=== PATIENT | female | born 1985 | race Caucasian/White ===

== ENCOUNTER 2018-02-23 23:38 | Inpatient (IN) | payer OTHER ==
[2018-02-24 00:14] VITALS: BMI 39.1
[2018-02-24 00:59] LABS: Amnisure Test RUPTURE DETECTED (No Rupture)
[2018-02-24 01:01] LABS: Amnisure Internal Control QC ACCEPTABLE (ACCEPTABLE)
[2018-02-24] MEDS ORDERED: Ondansetron HCl/PF 4 MG/2 ML Vial IVP PRN ×3 (01:22→19:06)
[2018-02-24] MEDS ORDERED: Butorphanol Tartrate 1 MG/ML VIAL SLOW IVP PRN (01:22)
[2018-02-24] MEDS ORDERED: Acetaminophen 500 MG TAB PO PRN (01:22)
[2018-02-24] MEDS ORDERED: Promethazine HCl 25 MG/ML VIAL IM PRN ×3 (01:22→19:06)
[2018-02-24] MEDS ORDERED: NS / Oxytocin 40 units/1000ml 1,000 ML IV SCH ×2 (01:30→19:06)
[2018-02-24] MEDS ORDERED: Misoprostol 200 MCG TAB RC PRN (01:30)
[2018-02-24] MEDS ORDERED: NS w/ Oxytocin 10 units 500 ML IV SCH ×2 (01:30)
[2018-02-24] MEDS ORDERED: Methylergonovine 0.2 MG/ML VIAL IM PRN ×2 (01:30→19:06)
[2018-02-24] MEDS ORDERED: Carboprost 250 MCG/ML AMP IM PRN (01:30)
[2018-02-24] MEDS ORDERED: Ibuprofen 800 MG TAB PO PRN (01:30)
[2018-02-24] MEDS ORDERED: Penicillin G Potassium 5 MILL.UNITS in Sodium Chloride 0.9% 100 ML IVPB SCH (01:30)
[2018-02-24] MEDS ORDERED: HYDROcodone/Acetaminophen 5/325 mg Tablet PO PRN ×4 (01:30→19:06)
[2018-02-24] MEDS ORDERED: Lidocaine 1% (PF) 30 ML VIAL SC PRN (01:30)
[2018-02-24] MEDS: Lactated Ringer's 1,000 ML IV SCH ×4 (01:36→13:29)
[2018-02-24] MEDS ORDERED: DISCONTINUE ALL PREVIOUS NARCOTICS FS SCH (01:45)
[2018-02-24 01:52] LABS: Hemoglobin 10.9 g/dL (12.0-16.0); Mean Corpuscular HGB CONC 35.2 g/dL (32.0-36.0); Mean Corpuscular Hemoglobin 29.1 pg (27.0-31.0); Mean Corpuscular Volume 82.5 fL (78.0-98.0); Mean Platelet Volume 8.2 fL (7.4-10.4); Platelet Count 167 thou/uL (130-400); RBC Distribution Width 17.7 % (11.5-14.5); Red Blood Cell (RBC) Count 3.76 mill/uL (4.20-5.40); White Blood Cell (WBC) Count 9.8 thou/uL (4.8-10.8)
[2018-02-24] MEDS: Bupivacaine 0.5% 20 ML, fentaNYL Citrate/PF 400 MCG in Sodium Chloride 0.9% 72 ML EPIDURAL SCH ×2 (02:19→10:34)
[2018-02-24 02:32] LABS: HBSAg Index 0.15 S/CO (0-0.99); HIV (1/2) Antibody/Antigen Non-Reactive (NonReactive); HIV 1/2 INDEX 0.12 S/CO (<1.00); Hep B Surf Ag Non-Reactive S/CO (NonReactive)
[2018-02-24] MEDS ORDERED: ePHEDrine/0.9% NaCl/PF SYRINGE 50 mg/10 ml SLOW IVP PRN (02:37)
[2018-02-24] MEDS ORDERED: Acetaminophen 325 MG TAB PO PRN (02:37)
[2018-02-24] MEDS ORDERED: Eucerin (Mineral Oil/Petrolatum,White) 30 gm Jar TOP PRN (02:37)
[2018-02-24] MEDS ORDERED: Naloxone HCl 0.4 mg/ml Vial IVP PRN ×2 (02:37)
[2018-02-24] MEDS ORDERED: Lactated Ringer's 500 ML IV PRN (02:37)
[2018-02-24] MEDS ORDERED: fentaNYL Citrate/PF 400 MCG, Bupivacaine 0.5% 20 ML in Sodium Chloride 0.9% 72 ML EPIDURAL SCH (02:45)
[2018-02-24] MEDS ORDERED: Communication Order-Pharmacy FS SCH (02:45)
[2018-02-24 04:17] LABS: Syphilis Antibody Nonreactive (Nonreactive); Syphilis Antibody Index 0.04 S/CO (<1.00 Non-Reactive)
[2018-02-24] MEDS: Penicillin G 2.5 MILL.units 50 ML IVPB SCH ×4 (06:03→20:38)
[2018-02-24] MEDS: diphenhydrAMINE 50 MG/ML VIAL IVP PRN ×2 (07:16→10:05)
[2018-02-24] MEDS ORDERED: Lidocaine 1% PF 5 ML VIAL ONE (08:31)
[2018-02-24] MEDS ORDERED: Bupivacaine PF 0.5% 30 ML VIAL ONE (11:11)
[2018-02-24] MEDS ORDERED: Butorphanol Tartrate 1 MG/ML VIAL ONE ×2 (12:51→15:09)
[2018-02-24] MEDS ORDERED: Butorphanol Tartrate 1 MG/ML VIAL SLOW IVP SCH (15:30)
[2018-02-24] MEDS ORDERED: Methylergonovine 0.2 MG/ML VIAL ONE (15:46)
[2018-02-24] MEDS ORDERED: diphenhydrAMINE 25 MG CAP PO PRN (19:06)
[2018-02-24] MEDS ORDERED: Bisacodyl 10 MG SUPP PR PRN (19:06)
[2018-02-24] MEDS ORDERED: Milk Of Magnesia 30 ML UDCUP PO PRN (19:06)
[2018-02-24] MEDS ORDERED: Zolpidem Tartrate 5 MG TAB PO PRN (19:06)
[2018-02-24] MEDS ORDERED: Lanolin Ointment 7 GM TUBE TOP PRN (19:06)
[2018-02-24] MEDS ORDERED: Preparation H Ointment 28 GM TUBE PR PRN (19:06)
[2018-02-24] MEDS ORDERED: Misoprostol 200 MCG TAB VAG PRN (19:06)
[2018-02-24] MEDS: Ibuprofen 800 MG TAB PO SCH (21:35)
[2018-02-24] MEDS: Docusate Calcium (SURFAK) 240 MG CAP PO SCH (21:35)
[2018-02-25 05:50] LABS: #Eosinphils 0.1 thou/uL (0.0-0.7); #Lymphocytes 1.5 thou/uL (1.20-3.40); #Monocytes 0.6 thou/uL (0.11-0.59); #Neutrophils 3.9 thou/uL (1.40-6.50); %Basophils 0.4 % (0.0-1.0); %Lymphocytes 24.7 % (21.0-51.0); %Neutrophils 63.9 % (42.0-75.0); Hemoglobin 9.4 g/dL (12.0-16.0); Mean Corpuscular HGB CONC 34.3 g/dL (32.0-36.0); Mean Corpuscular Hemoglobin 28.9 pg (27.0-31.0); Mean Corpuscular Volume 84.2 fL (78.0-98.0); Mean Platelet Volume 8.2 fL (7.4-10.4); Platelet Count 147 thou/uL (130-400); RBC Distribution Width 17.9 % (11.5-14.5); Red Blood Cell (RBC) Count 3.26 mill/uL (4.20-5.40); White Blood Cell (WBC) Count 6.1 thou/uL (4.8-10.8)
[2018-02-25] MEDS: Ibuprofen 800 MG TAB PO SCH ×3 (06:36→20:58)
[2018-02-25] MEDS ORDERED: Adacel (T-DAP) 0.5 ML VIAL IM ONE (09:00)
[2018-02-25] MEDS ORDERED: Measles/Mumps/Rubella 10 MCG/0.5 ML VIAL SC ONE (09:00)
[2018-02-25] MEDS ORDERED: Varicella virus, LIVE 0.5 ML VIAL SC ONE (09:00)
[2018-02-25] MEDS: Docusate Calcium (SURFAK) 240 MG CAP PO SCH ×2 (09:12→20:58)
[2018-02-25] MEDS: Ferrous Sulfate 325 MG TAB PO SCH ×2 (09:12→18:39)
[2018-02-25] MEDS ORDERED: Ondansetron ODT 4 MG TAB PO SCH (16:00)
[2018-02-25] MEDS ORDERED: Magnesium Oxide 250 MG TAB PO SCH (20:30)
[2018-02-26] MEDS: Ibuprofen 800 MG TAB PO SCH ×2 (05:38→14:21)
[2018-02-26] MEDS ORDERED: Magnesium Oxide 250 MG TAB PO SCH (09:00)
[2018-02-26] MEDS: Ferrous Sulfate 325 MG TAB PO SCH (09:55)
[2018-02-26] MEDS: Docusate Calcium (SURFAK) 240 MG CAP PO SCH (09:55)
--- NOTE | 2018-02-26 11:22 | OP ---
DATE OF SERVICE: 02/24/2018 PREOPERATIVE DIAGNOSES: Intrauterine at 36 weeks with spontaneous rupture of membranes and labor. POSTOPERATIVE DIAGNOSES: Intrauterine at 36 weeks with spontaneous rupture of membranes and labor. PROCEDURE: Spontaneous vaginal delivery over intact perineum. FINDINGS: A viable male weighing 3083 grams or 6 pounds 13 ounces with Apgars of 9 and 9. QUANTITATIVE BLOOD LOSS: 154 grams. COMPLICATIONS: None. DETAILS OF THE PROCEDURE: Ms. Blanco presented to [facility] Labor and Delivery tested positive for rupture of membranes, after complaining of several hours of leakage of fluid and contractions. ROM plus testing was positive. She was admitted for labor and dilated to approximately 6 cm at that point. She was allowed to progress on her own overnight and when progression was minimal by morning we started Pitocin. Pitocin augmentation was successful and the patient delivered a baby in vertex presentation over intact perineum. Once the head was out, shoulders delivered spontaneously along with rest of the baby's body. The mouth and nose were bulb suctioned. Cord clamped and cut. Baby handed to waiting attendants. Cord blood was obtained. Fundal massage was performed and the placenta delivered intact. Pitocin was then started. Inspection of the perineum, vaginal vault and cervix did not reveal any lacerations. The patient was then cleaned and allowed to recover in the labor and delivery room and baby went to nursery for further evaluation. Quantitative blood loss was measured at 154 grams. MTDD
[2018-02-26 13:27] VITALS: BP 102/62; TEMP 98.2
== END 2018-02-26 15:05 | disposition home or self-care (01) | DRG 775 ==
LOC: L&D/OP 23:38 → L&D 02-24 01:12 → 3SW 02-24 19:43
PROVIDERS: ADMIT Obstetrics & Gynecology; ATTEND Obstetrics & Gynecology
PROC: 10E0XZZ Delivery of Products of Conception, External Approach (ICD-10-PCS; principal; 2018-02-24)
DX: O76 Abnormality in fetal heart rate and rhythm complicating labor and delivery (principal); Z3A.37 37 weeks gestation of pregnancy; Z37.0 Single live birth; O99.52 Diseases of the respiratory system complicating childbirth; J45.909 Unspecified asthma, uncomplicated
CPT/HCPCS: 36415; 51702; 84112; 85027; 86780; 86850; 86870; 86900; 86901; 86905; 86922; 87340; 87389; 90715; 99285; J0595; J1200; J2001; J2210; J2310; J2405; J2540; J3010; J3490; J7050; Q0162; S0020

== ENCOUNTER 2018-08-26 16:13 | Emergency (ER) | payer OTHER, SELFPAY ==
[2018-08-26 17:24] LABS: #Eosinphils 0.1 thou/uL (0.0-0.7); #Lymphocytes 2.8 thou/uL (1.20-3.40); #Monocytes 0.4 thou/uL (0.11-0.59); #Neutrophils 4.3 thou/uL (1.40-6.50); %Basophils 0.3 % (0.0-1.0); %Eosinophils 1.1 % (0.0-10.0); %Lymphocytes 36.4 % (21.0-51.0); %Neutrophils 57.3 % (42.0-75.0); Hemoglobin 11.9 g/dL (12.0-16.0); Mean Corpuscular HGB CONC 32.8 g/dL (32.0-36.0); Mean Corpuscular Hemoglobin 27.9 pg (27.0-31.0); Mean Corpuscular Volume 85.1 fL (78.0-98.0); Platelet Count 259 thou/uL (130-400); Red Blood Cell (RBC) Count 4.25 mill/uL (4.20-5.40); White Blood Cell (WBC) Count 7.6 thou/uL (4.8-10.8)
[2018-08-26] MEDS ORDERED: Acetaminophen 500 MG TAB ONE (21:53)
--- NOTE | 2018-08-26 22:15 | ULT ---
PELVIC ULTRASOUND: History: Recent miscarriage with vaginal bleeding. FINDINGS: Real-time imaging of the pelvis was obtained transabdominally as well as with an endovaginal probe. This shows a uterus measuring 5.9 x 8.2 x 11.3 cm. Endometrium in the fundus region is not thickened and measures in the 1.2 mm range. It is slightly thickened in the lower uterine segment, increasing i n thickness to approximately 5 mm I do not see any retained products of conception. The right and left adnexa are normal in appearance. Doppler evaluation with spectral analysis: Normal flow is shown to both ovaries. IMPRESSION: 1. Minimally thickened lower uterine segment endometrium as compared to the fundal endometrium. No si gns of any retained products of conception. This could conceivably represent a small amount of residu al blood in the endometrium. POS: IMTIAZ
[2018-08-27 00:15] LABS: #Basophils 0.1 thou/uL (0.0-0.2); #Eosinphils 0.2 thou/uL (0.0-0.7); #Lymphocytes 3.6 thou/uL (1.20-3.40); #Monocytes 0.6 thou/uL (0.11-0.59); #Neutrophils 3.7 thou/uL (1.40-6.50); %Basophils 0.6 % (0.0-1.0); %Eosinophils 1.9 % (0.0-10.0); %Lymphocytes 44.5 % (21.0-51.0); %Monocytes 6.9 % (0.0-10.0); %Neutrophils 46.1 % (42.0-75.0); Hemoglobin 12.4 g/dL (12.0-16.0); Mean Corpuscular HGB CONC 32.8 g/dL (32.0-36.0); Mean Corpuscular Volume 85.4 fL (78.0-98.0); Mean Platelet Volume 8.2 fL (7.4-10.4); Platelet Count 262 thou/uL (130-400); Red Blood Cell (RBC) Count 4.41 mill/uL (4.20-5.40); White Blood Cell (WBC) Count 8.1 thou/uL (4.8-10.8)
[2018-08-27] MEDS ORDERED: Misoprostol 200 MCG TAB PO SCH (00:30)
[2018-08-27] MEDS ORDERED: Misoprostol 200 MCG TAB PR SCH (00:30)
== END 2018-08-27 01:53 | disposition home or self-care (01) ==
LOC: ERS 16:13
DX: O03.9 Complete or unspecified spontaneous abortion without complication (principal); J45.909 Unspecified asthma, uncomplicated; Z79.899 Other long term (current) drug therapy; Z79.51 Long term (current) use of inhaled steroids
CPT/HCPCS: 36415; 76856; 84702; 85025; 86900; 86901

== ENCOUNTER 2019-04-10 04:58 | Observation (INO) | payer OTHER ==
[2019-04-10] MEDS ORDERED: Albuterol Sulfate 2.5 mg/3 ml Neb ONE ×2 (05:15→07:53)
--- NOTE | 2019-04-10 06:26 | PDOC.FPRHP ---
- History of Present Illness Chief Complaint: Shortness of breath History of Present Illness: Sherri Rahman is a 33 year old at 27 wks who presented to the ED with a 5 day history of dyspnea, cough. Patient's symptoms started after having some congestion and with the recent change in weather (cold front). Denies fever. Occasional coughing up phlegm. Hospitalized in November 2018. Since 2016, has been hospitalized several times. Patient was seen the clinic twice since symptom onset and was given PO prednisone. Symptoms have only been progressively worsening. Notes some improvement with duoneb treatment previously in the week in the ED. - Allergies/Adverse Reactions Allergies Allergy/AdvReac Type Severity Reaction Status Date / Time Latex, Natural Rubber Allergy Mild Rash Verified 02/24/18 00:00 No Known Drug Allergies Allergy Verified 02/24/18 00:00 - Home Medications Medication Instructions Recorded Confirmed Type Albuterol Sulfate [Proair HFA] 2 puff INH Q4HR PRN 02/24/18 02/24/18 History Ferrous Sulfate [Iron] 325 mg PO DAILY 02/24/18 02/24/18 History Fluticasone/Salmeterol [Advair 1 inh IH BID 02/24/18 02/24/18 History Diskus 250/50] Magnesium Oxide [Magnesium] 500 mg PO DAILY 02/24/18 02/24/18 History Montelukast Sodium [Singulair] 10 mg PO HS 02/24/18 02/24/18 History Mv-Mn/Iron/FA/Herbal/Digestive 1 tablet PO DAILY 02/24/18 02/24/18 History [ One Tablet] Nasal Exhalation Resistanc.dev 1 each NS ASDIR 02/24/18 02/24/18 History [Provent] - History PMHx: Asthma, Anemia of PSHx: none FHx: noncontributory Social: denies smoking, tobacco, drug use - Review of Systems General: denies: fever/chills, weight/appetite/sleep changes Eyes: denies: eye pain, vision changes ENT: reports: nasal congestion, rhinorrhea Respiratory: reports: cough, congestion, shortness of breath Cardiovascular: denies: chest pain, palpitation Gastrointestinal: denies: nausea, vomiting Genitourinary: denies: incontinence, dysuria Skin: denies: rashes, lesions Musculoskeletal: denies: pain, tenderness Neurological: denies: numbness, weakness Psychological: denies: depression, other - Vital signs BP: 125/80, Pulse: 136, Resp: 40, Temp: 98.2 (Oral), Pain: 4, O2 sat: 98 on Room Air - Physical Exam Constitutional: awake, alert and oriented, well developed HEENT: normocephalic and atraumatic, EOMI, grossly normal vision, grossly normal hearing Neck: supple, FROM -Heart: Tachycardic, no murmur -Lungs: Poor air movement, few scant expiratory wheezes, tachypnea Abdomen: soft, non-tender Musculoskeletal: normal structure, normal tone Neurological: no focal deficit, CN II-XII intact Skin: no rash/lesions, capillary refill <2 seconds Heme/Lymphatic: no unusual bruising or bleeding, no purpura Psychiatric: normal mood and affect, good judgment and insight FMR H&P: A/P - Problem List (1) Asthma exacerbation Current Visit: Yes Status: Acute Code(s): J45.901 - UNSPECIFIED ASTHMA WITH (ACUTE) EXACERBATION (2) Third trimester Current Visit: Yes Status: Acute Code(s): Z34.93 - ENCNTR FOR SUPRVSN OF NORMAL PREG, UNSP, THIRD TRIMESTER - Plan Asthma Exacerbation - q2 albuterol nebs - 40 pred daily - continue advair daily - Mg - Continuous pulse ox - Supplemental O2 as needed, goal > 92% 3rd Trimester - anemia of , continue iron supplementation - routine care Dispo: Admit to clinical documentation improvement specialist/women's FMR H&P: Upper Level - Plan Date/Time: 04/10/19 0626 IKenny MD, have evaluated this patient and agree with findings/plan as outlined by human resource intern resident. Pertinent changes/additions are listed here. Sherri Rahman is a 33 year old F at 27 wks by 1T zaira who presented to the ED with a 5 day history of worsening asthma, cough, wheezes. Patient has been seen by PCP and ER and was started on additional inhaler, prednisone. At home, she is adherent to her regimen of advair, singulair, albuterol HFA and neb prn. Symptoms have continued to worsen despite these treatments. Patient has had several asthma exacerbations requiring hospitalization in the last 3 years. She states asthma is worsened by weather changes (normally cold fronts) and URIs. Last hospitalization was in November 2018. She denies any fever, chills , vision changes, chest pain, palpitations. In the ED, patient's HR was 136 and RR was 40 on admission, afebrile, normal O2 sats. In regards to her , states that has been uncomplicated thus far, with exception of anemia of . She denies any contractions, loss of fluid, vaginal discharge, dysuria. She had a small amount of spotting yesterday that has since resolved and she is still feeling baby move. No labs/imaging done in ED. Patient was given Albuterol neb and duoneb in ED. She continues to feel short of breath. On exam, she was tachypneic and tachycardic. Auscultation revealed decrease airway movement, prolonged expiratory phase. Patient is being admitted for acute asthma exacerbation. Will schedule q2hr duoneb redd. Start prednisone 40 mg po daily. Ordered NST. Continuous O2 monitoring. Will consider addition of IV mag sulfate. Anticipate hospital stay > 48 hrs. Please see human resource intern note above for full H&P, which I have reviewed and agree with. Addendum - Attending - Attending Attestation Date/Time: 04/10/19 5589 I personally evaluated the patient and discussed the management with Dr. Barbour/ Jason I agree with the History, Examination, Assessment and Plan documented above with any addition or exceptions noted below. Patient is a 33 yo at 26 wk with patient reported EDC of 07/17/19. Presents as admission from ER with a CC of worsening SOB. Patient was maintaining oxygen saturations during the ER course. She was seen in ER 2 days ago and started on PO prednisone. She was seen yesterday at [facility] and started on a second ICS. Patient reports compliance with regimen and describes proper inhaler use. She states she has had intermittent control of her asthma over the past 3 years since her initial diagnosis. She denies tobacco exposure. States she had recently acquired 2 cats approximately 6 months ago but has not noticed any change in her symptoms. Patient also states she is working at [employer] and note that the change in temperature from the locations she works triggers her sx. She also states weather changes trigger her sx. ABG unremarkable. On exam, poor air movement with prolonged expiratory phase. Patient states she is feeling better. Plan to start IV steroids, given IV mag, check procalcitonin, scheduled duonebs. Patient states duoneb and not albuterol helping. Will reassess frequently. Pulm consulted since patient on maximum maintenance medications. Will await recommendations. JEANMARIE for records from last hospital stay in the [facility] and from primary OB office to verify official EGA. BPP ordered. Q-shift NST.
[2019-04-10] MEDS ORDERED: Albuterol Sulfate 2.5 mg/0.5 ml Neb ONE (07:53)
[2019-04-10] MEDS ORDERED: Magnesium 2 GM/50 ML BAG (IN WATER) ONE (08:20)
[2019-04-10 08:26] LABS: Analyzer IN Cardio ER; Base Excess (BEa) -5.1 mEq/L (-2.0 to +3.0); CO2 Tension 27.9 mmHg (35.0-45.0); Calcium, Ionized 1.17 mmol/L (1.12-1.30); Hemoglobin (Hb) 11.9 g/dL (12.0-16.0); pH, Arterial 7.43 (7.35-7.45)
[2019-04-10 08:27] LABS: ALV-art Gradient 15.855 (0-20); Puncture Site RRA
[2019-04-10] MEDS ORDERED: methylPREDNISolone Sod Succ/PF 125 MG/2 ML VIAL ONE (08:45)
[2019-04-10] MEDS ORDERED: Acetaminophen 325 MG TAB PO PRN (08:59)
[2019-04-10] MEDS ORDERED: predniSONE 20 MG TAB PO SCH (09:15)
--- NOTE | 2019-04-10 09:35 | ULT ---
ULTRASOUND BIOPHYSICAL PROFILE: HISTORY: distress FINDINGS: A single live intrauterine gestation is seen. heart rate:136bpm RAI: 12.5 cm Placenta: Posterior without placenta previa Cervix: 4.1 cm in length OB biophysical profile: tone: 2 breathin movements: 2 Amniotic fluid: 2 IMPRESSION: The ultrasound biophysical profile score is 8 out of 8.
[2019-04-10] MEDS ORDERED: Albuterol Sulfate 1.25 MG/3 ML NEB NEB SCH ×2 (10:00→13:00)
--- NOTE | 2019-04-10 13:09 | CON ---
DATE OF CONSULTATION: HISTORY OF PRESENT ILLNESS: Sherri Rahman is a 33-year-old female 7 months who has had asthma for the last 3-4 years. Baseline medication includes Advair 500/50 twice a day, Singulair 10 at nighttime, magnesium 500 a day, ferrous sulfate, and albuterol as needed. She is admitted over the weekend with increased shortness of breath, cough, and wheezing, unresponsive to usual medication. We have been consulted regarding asthma. No fever or chills. No chest pain. This morning, she is somewhat better, but still wheezing and coughing and sinus drainage. No reflux. PAST MEDICAL HISTORY: Never smoked. No alcohol abuse. PAST SURGICAL HISTORY: None. SOCIAL HISTORY: She works at [employer]. REVIEW OF SYSTEMS: Unremarkable. PHYSICAL EXAMINATION: GENERAL: On examination, she appears to be in no acute distress. VITAL SIGNS: Saturations room air, respiratory rate 19, blood pressure 130/55. CHEST: Minimal wheezing. CARDIAC: Normal S1, S2. No gallops. ABDOMEN: No masses. LABORATORY DATA: A blood gas was ordered on room air. PO2 was 99, pCO2 . ASSESSMENT: Asthmatic bronchitis exacerbation. I am going to restart home medication, DuoNeb, Singulair. Agree with antibiotics. Magnesium. Home when improved. I would consider 2 weeks. Pulmonary will follow. Job ID: [id number]
[2019-04-10] MEDS ORDERED: Albuterol Sulfate 2.5 mg/3 ml Neb NEB PRN (15:01)
--- NOTE | 2019-04-10 15:01 | PDOC.EVN ---
Event Note - Event Note Event Note: Evaluated patient again. Reports she had just had a flare up of difficulty breathing and feeling like her airway was tight and received duoneb which improved symptoms. She intermittently has dry cough. Has very minimal nasal congestion. Lungs on exam: slightly improved air movement compared to this am, decreased expiratory breath sounds with faint wheeze. Received record from Dr. Tucker's office. Showed STEVE of 07/17, putting pt @ 26.0wks gestation today. Patient denies childhood asthma. Reports asthma symptoms began 3 years ago with hospitalization in 2016. Has had 4 hospitalizations in past 2 years, the last one being in the summer at the [facility]. Never intubated. Reports has needed NC for short time and typical stays are 2-3 days. She reports compliance with advair, singulair, oral magnesium, and prn albuterol. Has had cats for past 6 months. Started working at [employer] 1 month ago. Reports changes in temperature, smell of chemicals can be triggers for asthma but at times there is no identifiable trigger. Denies family history of adult asthma. Has never had PFTs or allergy testing done. Continue current management and monitor for gradual clinical improvement. ATTENDING ADDENDUM: I personally evaluated patient at 1600. Patient appears to be breathing better. NST underway. will evaluate when completed.
[2019-04-10] MEDS ORDERED: Fluticasone Propionate Nasal Spray 16 gm Bottle NASAL SCH (17:45)
[2019-04-10] MEDS: Mometasone/Formoterol 120 PUFF INHALER INH SCH (18:07)
[2019-04-10] MEDS ORDERED: Montelukast Sodium 10 mg Tablet PO SCH (21:00)
--- NOTE | 2019-04-11 07:00 | PDOC.FM ---
- Subjective Subjective: Ms. aRhman reports slight improvement in breathing. Notes overnight she did have flare of difficulty breathing and sensation of chest tightness like her airway was closing. During that time she was unable to speak in normal voice. Denies fever. Denies feeling of panic or anxiety with exacerbations. - Objective Vital Signs & Weight: Vital Signs (12 hours) Temp Pulse Resp BP Pulse Ox 04/11/19 05:03 109 H 18 96 04/11/19 04:21 98.0 F 109 H 20 107/59 L 96 04/11/19 00:16 98.2 F 106 H 16 117/64 96 04/11/19 00:11 107 H 16 97 I&O: 04/10/19 04/11/19 04/12/19 06:59 06:59 06:59 Intake Total 720 Balance 720 Phys Exam - Physical Examination Constitutional: NAD Respiratory: no wheezing (slightly decreased breath sounds) Cardiovascular: RRR, no significant murmur Gastrointestinal: soft Musculoskeletal: no edema Neurological: non-focal Psychiatric: normal affect Skin: normal turgor Dx/Plan (1) Asthma exacerbation Code(s): J45.901 - UNSPECIFIED ASTHMA WITH (ACUTE) EXACERBATION Status: Acute - Plan Plan: Asthma Exacerbation - continue duonebs, albuterol prn - s/p Mag, solumedrol. Will continue PO prednisone - not required supplemental O2 - pulmonology consulted - would bnefit from PFTs and additional outpatient workup including allergy testing as well as patient has interesting history. Could also consider vocal cord dysfunction etc in differential. sIUP @ 26 wks - anemia of , continue iron supplementation - FHT qshift -last documented 145. - BPP completed 01/23. Dispo: Plan for discharge home today with steroid taper per pulm recommendations. Follow up with [facility] within 1 week. Pulmonology follow up in 2 weeks. Addendum - Attending - Attending Attestation Date/Time: 04/11/19 6236 I personally evaluated the patient and discussed the management with Dr. Rudolph I agree with the History, Examination, Assessment and Plan documented above with any addition or exceptions noted below. cleared for d/c by pulm. D/C on 2 week steroid taper. Continue advair, singulair , albuterol INH, duoneb, and albuterol neb. F/U pulm 2 wk. F/U [facility] 1 wk for allergy referral.
[2019-04-11] MEDS ORDERED: predniSONE 20 MG TAB PO SCH (08:00)
[2019-04-11] MEDS: Mometasone/Formoterol 120 PUFF INHALER INH SCH (08:05)
[2019-04-11] MEDS ORDERED: Fluticasone Propionate Nasal Spray 16 gm Bottle NASAL SCH ×2 (09:00)
[2019-04-11] MEDS ORDERED: Magnesium Oxide 250 MG TAB PO SCH (09:00)
--- NOTE | 2019-04-11 09:31 | PRG ---
DATE OF SERVICE: 04/11/2019 SUBJECTIVE: This morning, she is awake, alert, responsive. No shortness of breath. No coughing or wheezing, though she does have postnasal drip, which aggravates her asthma. OBJECTIVE: VITAL SIGNS: Pulse 76, temperature 98, saturations are 90% on room air, and blood pressure 129/66. CHEST: No wheezing or crackles. CARDIAC: Normal S1 and S2. No gallops. ABDOMEN: No masses. ASSESSMENT: 1. Asthmatic bronchitis, stable. I had no wheezing today in fact I did not get much wheezing yesterday. 2. Rhinitis. 3. . PLAN: Pulmonary-vargas, she is ready to be discharged home. I suggest we can increase the Flonase to twice a day to help her drainage, which apparently is aggravating her asthma, though she is clearly stable right now. Disposition as per primary care physician. She needs to be on home inhaled steroids, Singulair, and neb treatments. Taper steroids over 2 weeks. Job ID: [id number]
[2019-04-11] MEDS ORDERED: Prenatal Vitamin 1 TAB PO SCH (09:45)
[2019-04-11 11:27] VITALS: TEMP 98.2
[2019-04-11 13:31] VITALS: BP 129/66
[2019-04-11] MEDS ORDERED: FLU VACC QS2019-20(6MOS UP)/PF 60 MCG/0.5 ML SYRINGE IM ONE (15:00)
[2019-04-12] MEDS ORDERED: Ferrous Sulfate 325 MG TAB PO SCH (09:00)
[2019-04-12] MEDS ORDERED: HERBAL PO SCH (09:00)
[2019-04-12] MEDS ORDERED: Non-Formulary Item 1 EACH (Ferrous Sulfate [Iron] 325 MG) PO SCH (09:00)
[2019-04-12] MEDS ORDERED: DIGESTIVE PO SCH (09:00)
[2019-04-12] MEDS ORDERED: [UNRECOGNIZED DRUG - OTHER] PO SCH (09:00)
[2019-04-12] MEDS ORDERED: IRON PO SCH (09:00)
[2019-04-12] MEDS ORDERED: MV MN PO SCH (09:00)
[2019-04-12] MEDS ORDERED: Prenatal Vitamin 1 TAB PO SCH (09:00)
--- NOTE | 2019-04-14 13:56 | DIS ---
DATE OF ADMISSION: 04/10/2019 DATE OF DISCHARGE: 04/11/2019 RESIDENT: Marian Rudolph DO ADMITTING/ATTENDING PHYSICIAN: Crispin Contreras MD DISCHARGE ATTENDING: Crispin Contreras MD CONSULTS: Pulmonology, Dr. Garcia. PROCEDURES: On 04/10/2019, biophysical profile ultrasound was normal, 01/23. PRIMARY DIAGNOSIS: Asthma exacerbation. SECONDARY DIAGNOSIS: Intrauterine at 26 weeks. DISCHARGE MEDICATIONS: 1. vitamin 1 tablet p.o. daily. 2. Ferrous sulfate 325 mg p.o. daily. 3. Magnesium oxide 500 mg p.o. daily. 4. Singulair 10 mg p.o. at bedtime. 5. Advair Diskus 250/50 two puffs inhaled b.i.d. 6. Albuterol sulfate two puffs inhaled q.4 hours p.r.n. 7. Fluticasone propionate nasal spray, two sprays, nasal b.i.d. 8. Prednisone 14-day taper. 9. DuoNeb 3 mL nebulizer q.6 hours p.r.n. HISTORY OF PRESENT ILLNESS: A 33-year-old, G8, P4-2-1-5 at 26 weeks, presented to the emergency department with a 5-day history of worsening dyspnea and cough. She had been started on oral prednisone in addition to Advair and albuterol in the outpatient setting and has failed this treatment. On admission, the patient was tachycardic. She did not require supplemental oxygen. She was tachycardic. The patient's respiratory status continued to improve with scheduled breathing treatments. Pulmonology was consulted and recommended continuation of treatment. She was additionally given magnesium and continued on steroids throughout hospitalization. The patient was discharged with medications as listed above. Plan for followup with [facility] in 1 week as well as follow up with Pulmonology in 2 weeks. She will continue on a steroid taper until that time. The patient would likely benefit from official pulmonary function tests as well as additional outpatient workup including allergy testing as this has never been done before. Considering the patient's description of symptoms, could also consider vocal cord dysfunction or other etiologies in the differential as wheezing was not heard on exam during hospitalization. DISPOSITION: Stable. DISCHARGE INSTRUCTIONS: Location: Home. Diet: Regular. Activity: As tolerated. Followup: Followup with primary care physician at [facility] in 1 week. Followup with Pulmonology in 2 weeks. Job ID: [id number] MTDD
== END 2019-04-11 15:32 | disposition home health service (06) ==
LOC: ERS 04:58 → 3SE 09:08
PROVIDERS: ADMIT Family Medicine; ATTEND Family Medicine
DX: O99.512 Diseases of the respiratory system complicating pregnancy, second trimester (principal); J45.901 Unspecified asthma with (acute) exacerbation; J31.0 Chronic rhinitis; O99.012 Anemia complicating pregnancy, second trimester; D64.9 Anemia, unspecified; Z3A.27 27 weeks gestation of pregnancy; Z79.899 Other long term (current) drug therapy; Z91.040 Latex allergy status; Z79.52 Long term (current) use of systemic steroids
CPT/HCPCS: 36415; 59025; 76819; 82103; 82805; 90471; 90686; 94640; 96365; 96375; G0008; G0378; J2930; J3475; J7512; J7611; J7620

== ENCOUNTER 2019-04-15 07:04 | Observation (INO) | payer OTHER ==
[2019-04-15 07:35] LABS: #Eosinphils 0.1 thou/uL (0.0-0.7); #Lymphocytes 1.5 thou/uL (1.20-3.40); #Monocytes 0.5 thou/uL (0.11-0.59); #Neutrophils 7.2 thou/uL (1.40-6.50); %Eosinophils 0.7 % (0.0-10.0); %Lymphocytes 15.9 % (21.0-51.0); %Monocytes 5.7 % (0.0-10.0); %Neutrophils 77.7 % (42.0-75.0); Hemoglobin 11.2 g/dL (12.0-16.0); Mean Corpuscular HGB CONC 34.7 g/dL (32.0-36.0); Mean Corpuscular Hemoglobin 31.1 pg (27.0-31.0); Mean Corpuscular Volume 89.7 fL (78.0-98.0); Mean Platelet Volume 7.6 fL (7.4-10.4); Platelet Count 226 thou/uL (130-400); Red Blood Cell (RBC) Count 3.59 mill/uL (4.20-5.40); White Blood Cell (WBC) Count 9.3 thou/uL (4.8-10.8)
--- NOTE | 2019-04-15 07:57 | CT ---
CTA CHEST WITH CONTRAST, AND 3-D VOLUME RENDERING CLINICAL INDICATION: Short of breath; Elevated D-dimer Comparison exam: None FINDINGS: Pulmonary embolus:No significant filling defect is identified within the pulmonary arteries. Thoracic aorta is nonaneurysmal. Pulmonary parenchymal consolidation:None Pleural effusion: None Pneumothorax: None Osseous structures: No acute process. IMPRESSION: No acute pulmonary embolus.
[2019-04-15 08:01] LABS: ALT (SGPT) 15 U/L (8-55); AST (SGOT) 9 U/L (5-34); Albumin 3.7 g/dL (3.5-5.0); Alkaline Phosphatase 95 U/L (40-110); Anion Gap 14 mmol/L (10-20); BUN (Urea Nitrogen) 14 mg/dL (7.0-18.7); Bilirubin, Total 0.2 mg/dL (0.2-1.2); CK (CPK) 45 U/L (29-168); Calc. Creatinine Clearance 0 mL/min (70-130); Calcium 8.8 mg/dL (7.8-10.44); Carbon Dioxide 21 mmol/L (22-29); Chloride 107 mmol/L (98-107); Estimated GFR-MDRD Greater than 90; Globulin 2.6 g/dL (2.4-3.5); Glucose 94 mg/dL (70-105); Potassium 4.1 mmol/L (3.5-5.1); Protein, Total 6.3 g/dL (6.0-8.3); Sodium 138 mmol/L (136-145)
--- NOTE | 2019-04-15 08:05 | RAD ---
CHEST 1 VIEW PORTABLE: Date: 04/15/19 HISTORY: Dyspnea, wheezing, asthma. FINDINGS: Heart size is normal. The lungs are clear. No pneumonia, edema, pleural effusion, or other acute proc ess. IMPRESSION: No acute intrathoracic disease. POS: TPC
[2019-04-15] MEDS ORDERED: Ondansetron ODT 4 MG TAB PO PRN (11:00)
[2019-04-15] MEDS ORDERED: Acetaminophen 325 MG TAB PO PRN (11:00)
[2019-04-15] MEDS ORDERED: Albuterol Sulfate 2.5 mg/3 ml Neb NEB PRN (11:05)
--- NOTE | 2019-04-15 11:08 | PDOC.FPRHP ---
- History of Present Illness Chief Complaint: difficulty breathing History of Present Illness: 33 yo @ 26.5 wks presents to ED today for difficulty breathing. Recent hospitalization and discharged 04/11 in which she presented similarly. Pulmonology was consulted. Her tachypnea improved with medical management. She reports compliance with discharge medication regimen. Notes she returned to work yesterday, "felt bad" until she was able to come home. Then she felt bad again this morning prior to go to work. 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 Today at work she felt clammy, hot and like she would pass out then difficulty breathing. She then came to ED. Denies anxiety. Reports normal PO intake, urine output. Says she stopped using duonebs last night as they made her mouth numb but received one in ED and said it helped resp symptoms. + movement. ED Course: duoneb CTA neg CXR neg - Allergies/Adverse Reactions Allergies Allergy/AdvReac Type Severity Reaction Status Date / Time Latex, Natural Rubber Allergy Mild Rash Verified 04/15/19 11:19 - Home Medications Medication Instructions Recorded Confirmed Type Albuterol Sulfate [Proair HFA] 2 puff INH Q4HR PRN 02/24/18 04/10/19 History Ferrous Sulfate [Iron] 325 mg PO DAILY 02/24/18 04/10/19 History Magnesium Oxide [Magnesium] 500 mg PO DAILY 02/24/18 04/10/19 History Montelukast Sodium [Singulair] 10 mg PO HS 02/24/18 04/10/19 History Mv-Mn/Iron/FA/Herbal/Digestive 1 tablet PO DAILY 02/24/18 04/10/19 History [ One Tablet] Nasal Exhalation Resistanc.dev 1 each NS ASDIR 02/24/18 04/10/19 History [Provent] Fluticasone Propionate [Flonase 2 spray NASAL BID #1 bot 04/11/19 Rx Nasal [place]] Fluticasone/Salmeterol [Advair 2 inh IH BID #4 blst.w.dev 04/11/19 Rx Diskus 500/50] Ipratropium/Albuterol Sulfate 3 ml NEB [id number] PRN #50 neb 04/11/19 Rx [DuoNeb] predniSONE [Prednisone] 10 mg PO ASDIR 14 Days #31 tablet 04/11/19 Rx - History PMHx: asthma, anemia of PSHx: none FHx: none Social: denies tobacco, alcohol, drug use - Review of Systems General: denies: fever/chills, weight/appetite/sleep changes Eyes: denies: vision changes ENT: denies: rhinorrhea Respiratory: reports: cough, shortness of breath Cardiovascular: denies: chest pain, palpitation, edema Gastrointestinal: denies: nausea, vomiting, diarrhea Genitourinary: denies: dysuria, polyuria Skin: denies: rashes, lesions Musculoskeletal: denies: pain Neurological: denies: syncope, seizure Psychological: denies: anxiety, depression - Vital signs BP: 109/65 HR: 95 RR: 18 Tmax: 97.8 Pox: 97% on RA Wt: 105 kg - Physical Exam Constitutional: awake, alert and oriented, well developed HEENT: normocephalic and atraumatic, grossly normal vision, grossly normal hearing, MMM, oropharynx clear Neck: supple, trachea midline, no LAD, no thyromegaly Heart: RRR, normal S1/S2, no murmurs/rubs/gallops, no edema Lungs: CTAB, no respiratory distress, no wheezing Abdomen: soft, non-tender, bowel sounds present Musculoskeletal: normal structure, normal tone Neurological: no focal deficit Skin: good turgor Heme/Lymphatic: no unusual bruising or bleeding Psychiatric: normal mood and affect FMR H&P: Results - Labs Result Diagrams: 04/15/19 07:21 04/15/19 07:21 Lab results: WBC 9.3 thou/uL (4.8-10.8) 04/15/19 07:21 Hgb 11.2 g/dL (12.0-16.0) L 04/15/19 07:21 Hct 32.2 % (36.0-47.0) L 04/15/19 07:21 MCV 89.7 fL (78.0-98.0) 04/15/19 07:21 Plt Count 226 thou/uL (130-400) 04/15/19 07:21 Neutrophils % 77.7 % (42.0-75.0) H 04/15/19 07:21 Sodium 138 mmol/L (136-145) 04/15/19 07:21 Potassium 4.1 mmol/L (3.5-5.1) 04/15/19 07:21 Chloride 107 mmol/L (98-107) 04/15/19 07:21 Carbon Dioxide 21 mmol/L (22-29) L 04/15/19 07:21 BUN 14 mg/dL (7.0-18.7) 04/15/19 07:21 Creatinine 0.67 mg/dL (0.6-1.1) 04/15/19 07:21 Glucose 94 mg/dL (70-105) 04/15/19 07:21 Calcium 8.8 mg/dL (7.8-10.44) 04/15/19 07:21 Total Bilirubin 0.2 mg/dL (0.2-1.2) 04/15/19 07:21 AST 9 U/L (5-34) 04/15/19 07:21 ALT 15 U/L (8-55) 04/15/19 07:21 Alkaline Phosphatase 95 U/L (40-110) 04/15/19 07:21 Creatine Kinase 45 U/L (29-168) 04/15/19 07:21 B-Natriuretic Peptide Less than 10.0 pg/mL (0-100) 04/15/19 07:21 Serum Total Protein 6.3 g/dL (6.0-8.3) 04/15/19 07:21 Albumin 3.7 g/dL (3.5-5.0) 04/15/19 07:21 FMR H&P: A/P - Problem List (1) Bronchitis Current Visit: Yes Status: Acute Code(s): J40 - BRONCHITIS, NOT SPECIFIED ACUTE OR CHRONIC (2) Tachypnea Current Visit: Yes Status: Acute Code(s): R06.82 - TACHYPNEA, NOT ELSEWHERE CLASSIFIED (3) Anemia affecting Current Visit: Yes Status: Chronic Code(s): O99.019 - ANEMIA COMPLICATING , UNSPECIFIED TRIMESTER - Plan 33 yo F admitted for observation for tachypnea. Viral bronchitis - CTA neg for PE, troponin neg, do not suspect ACS - Wheezing not heard, not likely asthma exacerbation - will continue medications discharged on including advair, duoneb and albuterol prn, PO steroid taper, flonase - "chest tightness" will trial pepcid in consideration for reflux. Pt had reflux with prior but wonders if she is starting to have it again - no hypoxia, tachypnea resolved. VSS. - Patient needs further outpatient eval including PFTs and allergy testing. Plan was for pulm follow up in 2 weeks. sIUP @ 26 wks - FHT q shift Anemia of - continue iron supplementation and PNV Ppx: SCDs Diet: Regular PCP: JT Dispo: admit for observation of respiratory status, could posisbly discharge later today vs tomorrow. There is no management being provided here at this time that cannot be done at home. Vital signs stable. Pending ABG. Addendum - Attending - Attending Attestation Date/Time: 04/15/19 2271 I personally evaluated the patient and discussed the management with Dr. Edwards and Aleksandar. I agree with the History, Examination, Assessment and Plan documented above with any addition or exceptions noted below. Her history is not entirely consistent with asthma. I think allergic broncihitis, viral bronchitis, laryngospasm, and somatization are all in the differential diagnosis. While she is breathing quickly during my exam she speaks comfortably and is not dyspneic. Her effort is poor for expiration phase of exam. Will obtain ABG for better objective data.
[2019-04-15] MEDS ORDERED: Famotidine 20 MG TAB PO SCH ×2 (11:15→21:00)
[2019-04-15] MEDS ORDERED: predniSONE 20 MG TAB PO SCH ×2 (11:15→12:30)
[2019-04-15 11:23] LABS: Troponin I Less than 0.010 ng/mL (< 0.028)
[2019-04-15 13:53] LABS: Troponin I Less than 0.010 ng/mL (< 0.028)
[2019-04-15 13:54] LABS: Actual Bicarbonate (HCO3a) 18.5 mEq/L (22-28); Base Excess (BEa) -4.4 mEq/L (-2.0 to +3.0); CO2 Tension 27.6 mmHg (35.0-45.0); Calcium, Ionized 1.12 mmol/L (1.12-1.30); Carboxyhemoglobin (COHb) 0.4 gm% (0.0-3.0); Hemoglobin (Hb) 11.4 g/dL (12.0-16.0); O2 Tension (PaO2) 77.8 mmHg (80.0-100.0); Potassium - ABG Lab 2.93 mmol/L (3.70-5.30); pH, Arterial 7.45 (7.35-7.45)
[2019-04-15 13:57] LABS: Puncture Site L.R.
--- NOTE | 2019-04-15 16:24 | PDOC.EVN ---
Event Note - Event Note Event Note: The patient was evaluated in the afternoon. She was saturating well on RA and her lungs sounded clear; patient was mildly tachypnic while resting in bed, with a rr in the lower 20s. Patient was agreeable to going home and following up with her pcp for pulmonology and deportation examiner referrals, as well as being discharged on a steroid taper and with medication to help with possible GERD. Patient was stable upon discharge.
[2019-04-15 17:20] VITALS: BP 114/55
[2019-04-15 17:56] VITALS: TEMP 98
[2019-04-15] MEDS ORDERED: Mometasone/Formoterol 120 PUFF INHALER INH SCH (18:30)
[2019-04-15] MEDS ORDERED: Fluticasone Propionate Nasal Spray 16 gm Bottle NASAL SCH (21:00)
[2019-04-15] MEDS ORDERED: Montelukast Sodium 10 mg Tablet PO SCH (21:00)
[2019-04-16] MEDS ORDERED: predniSONE 20 MG TAB PO SCH ×2 (08:00)
[2019-04-16] MEDS ORDERED: Prenatal Vitamin 1 TAB PO SCH (09:00)
[2019-04-16] MEDS ORDERED: Ferrous Sulfate 325 MG TAB PO SCH (09:00)
[2019-04-16] MEDS ORDERED: Magnesium Oxide 250 MG TAB PO SCH (09:00)
== END 2019-04-15 17:58 | disposition home health service (06) ==
LOC: ERS 07:04 → 3SE 09:10
PROVIDERS: ADMIT Family Medicine; ATTEND Family Medicine
DX: O99.512 Diseases of the respiratory system complicating pregnancy, second trimester (principal); J20.8 Acute bronchitis due to other specified organisms; J45.909 Unspecified asthma, uncomplicated; O99.012 Anemia complicating pregnancy, second trimester; D64.9 Anemia, unspecified; Z3A.26 26 weeks gestation of pregnancy; Z79.899 Other long term (current) drug therapy; Z91.040 Latex allergy status
CPT/HCPCS: 36415; 71045; 71275; 80053; 82550; 82805; 83880; 84484; 85025; 85379; 87804; 93005; 94640; G0378; J7512

== ENCOUNTER 2019-06-02 21:16 | Day surgery (SDC) | payer OTHER ==
[2019-06-02 21:38] VITALS: BP 122/76; TEMP 97.9; BMI 44.2
[2019-06-02] MEDS ORDERED: hydrALAZINE 20 MG/ML VIAL SLOW IVP PRN (21:44)
--- NOTE | 2019-06-02 22:31 | HP ---
TIME OF INITIAL EVALUATION: Roughly 2050 hours. LOCATION: Triage bed B. HISTORY OF PRESENT ILLNESS: In brief, this patient is here from [place] for labor eval. She is a 33-year-old white female, G8, P5, SAB2, with her last being delivered by vaginal at 36 weeks, who is now at 34 weeks' gestation. Her EDC is July 17, 2019. She states that she presented at [place] for occasional contractions and pelvic pressure, but denied leakage of fluid or vaginal bleeding or recent intercourse. She was fingertip in her cervical exam as per the ER physician in [place] (direct communication with him before her transport). She also reports some constipation, but again no leakage of fluid, but she does have some spotting. REVIEW OF SYSTEMS: Otherwise negative unless specified in the HPI. PAST OB HISTORY: Significant for being a 8, para 5, with no C-sections. Her last delivery was at 36 weeks. PAST MEDICAL HISTORY: Significant for asthma. MEDICATIONS: None. PAST SURGICAL HISTORY: Noncontributory. MEDICATIONS: Include vitamins. SOCIAL HISTORY: Negative for alcohol, tobacco, or drug use. PHYSICAL EXAMINATION: VITAL SIGNS: Her vital signs were reviewed with a blood pressure of 122/76, pulse was in the 90s. She was afebrile and respirations were 18 and unlabored. GENERAL: She was in no acute distress. ABDOMEN: Soft, nontender, and baby was cephalic by Venu palpation. : Perineal inspection revealed absence of gross bleeding or leakage of fluid. Valsalva and cough did not reveal leakage of fluid through the vagina. I performed a cervical examination after informing the patient of the need for that procedure. Cervix was closed (external os was fingertip) and it was thick and high. On monitor, heart tones were 130s to 140s with moderate variability and accelerations, meeting the definition for a reactive nonstress test. There were no contractions on tocodynamometer. ASSESSMENT: This is a 33 to 34-week multigravida with likely [place] contractions. No evidence of true labor. PLAN: 1. Observe in Labor and Delivery for about an hour. 2. Nonstress test was reviewed with the patient and reassurance given. 3. No active indication for acute intervention. 4. Okay to follow up with Dr. Tucker, who is her primary provider. Job ID: [id number]
== END 2019-06-02 22:22 | disposition home or self-care (01) ==
LOC: L&D/OP 21:16
PROVIDERS: ATTEND Obstetrics & Gynecology
DX: O47.03 False labor before 37 completed weeks of gestation, third trimester (principal); O99.613 Diseases of the digestive system complicating pregnancy, third trimester; K59.00 Constipation, unspecified; O26.853 Spotting complicating pregnancy, third trimester; Z3A.34 34 weeks gestation of pregnancy; Z91.040 Latex allergy status
CPT/HCPCS: 99283

== ENCOUNTER 2019-07-04 18:07 | Inpatient (IN) | payer OTHER ==
[2019-07-04 18:38] VITALS: BMI 41.0
[2019-07-04] MEDS ORDERED: hydrALAZINE 20 MG/ML VIAL SLOW IVP PRN (20:48)
--- NOTE | 2019-07-04 20:53 | PDOC.FPROB ---
FMR OB H&P: HPI - History of Present Illness Chief Complaint: Contractions Indentification: 33 yo @ 38.1 History of Present Illness: 33 yo @ 38.1 by LMP presents for painful contraction since 3pm today. Reports pos fm, no dc, lof, vag bleeding. Ab pos for Marzena-FYB, Anti-S abs. GBS pos + GBS bacteriuria this . Primary Care Physician: Caitlin FMR OB H&P: Current - Care : 8 Para: 4125 Gestational age: 38.1 Due date: 07/17/2019 Course/Complications: Anti FYB Anti S Pos. - OB Labs Blood type: O RH: positive Antibody Screen: positive HIV: negative RPR: negative HepBsAg: negative Rubella: immune Quad screen: unknown Urine drug screen: not done Gonorrhea: negative Chlamydia: negative 1 hour gtt: 117 GBS: positive FMR OB H&P: History - Past Medical History PMH: Asthma - OB History OB History: 1 delivery Ab pos this - Surgical History Sx History: Denies - Social History Social History: Denies etoh, tobacco and drugs FMR OB H&P: Medications - Current Home Medications: Medication Instructions Recorded Confirmed Type Ferrous Sulfate [Iron] 325 mg PO DAILY 02/24/18 07/04/19 History Magnesium Oxide [Magnesium] 500 mg PO DAILY 02/24/18 07/04/19 History Montelukast Sodium [Singulair] 10 mg PO HS 02/24/18 07/04/19 History Mv-Mn/Iron/FA/Herbal/Digestive 1 tablet PO DAILY 02/24/18 07/04/19 History [ One Tablet] Nasal Exhalation Resistanc.dev 1 each NS ASDIR 02/24/18 07/04/19 History [Provent] Fluticasone Propionate [Flonase 2 spray NASAL BID #1 bot 04/11/19 07/04/19 Rx Nasal [place]] Fluticasone/Salmeterol [Advair 2 inh IH BID #4 blst.w.dev 04/11/19 07/04/19 Rx Diskus 500/50] Ipratropium/Albuterol Sulfate 3 ml NEB [id number] PRN #50 neb 04/11/19 07/04/19 Rx [DuoNeb] Famotidine [Pepcid] 20 mg PO BID #60 tab 04/15/19 07/04/19 Rx Allergies/Adverse Reactions: Allergies Allergy/AdvReac Type Severity Reaction Status Date / Time Latex, Natural Rubber Allergy Mild Rash Verified 06/02/19 21:40 FMR OB H&P: ROS - Review of Systems General: denies: fever/chills Eyes: denies: vision changes Respiratory: denies: shortness of breath Gastrointestinal: reports: cramping. denies: abdominal pain, nausea, vomiting Genitourinary (Female): reports: contractions. denies: vaginal discharge, vaginal pain, vaginal bleeding, vaginal pressure Neurologic: denies: weakness, loss of counsciousness FMR OB H&P: Vital Signs - Heart Tones Baseline: 150 Variability: moderate Acceleration: present Deceleration: absent Category: category 1 [place] contractions every: Variable FMR OB H&P: Physical Exam - Physical Exam General: NAD, awake, alert and oriented HEENT: normocephalic and atraumatic, PERRLA, EOMI, conjunctiva clear Neck: trachea midline Heart: RRR, normal S1/S2 General: CTAB, no respiratory distress, good air movement, no rales/rhonchi, no wheezing Abdomen: soft, gravid, non-tender Neurological: no focal deficit Skin: no jaundice - Pelvic Exam Vulva: normal hair distribution SVE: 10/10/-3 Membranes: Intact Estimated Weight: 7 lbs FMR OB H&P: A/P - Problem List (1) Third trimester Current Visit: No Status: Acute Code(s): Z34.93 - ENCNTR FOR SUPRVSN OF NORMAL PREG, UNSP, THIRD TRIMESTER (2) Grand multiparity Current Visit: Yes Status: Acute Code(s): Z64.1 - PROBLEMS RELATED TO MULTIPARITY Disposition: Stable, will obs for next 2 hours and continue efm. Recheck cervix in 2 hours from last check. Discussion: Date/Time: 07/04/192048 This H&P was discussed with Dr. Faria who agrees with the above documentation and plan. 1) Term IUP, contractions - obs for 2 hours and recheck cervix, if pt makes significant change will admit - clinical course pending next cervical check Addendum - Attending - Attending Attestation Date/Time: 07/05/19 0728 I personally evaluated the patient and discussed the management with Dr. Lewis. I agree with the History, Examination, Assessment and Plan documented above.
[2019-07-04] MEDS ORDERED: FLU VACC QS2019-20(6MOS UP)/PF 60 MCG/0.5 ML SYRINGE IM ONE (21:00)
[2019-07-04] MEDS ORDERED: Lidocaine 1% (PF) 30 ML VIAL SC PRN (22:34)
[2019-07-04] MEDS ORDERED: Ondansetron PF 4 MG/2 ML Vial IVP PRN (22:34)
[2019-07-04] MEDS ORDERED: Ibuprofen 800 MG TAB PO PRN (22:34)
[2019-07-04] MEDS ORDERED: NS / Oxytocin 40 units/1000ml 1,000 ML IV PRN (22:34)
[2019-07-04] MEDS ORDERED: Promethazine HCl 25 MG/ML VIAL IM PRN (22:34)
[2019-07-04] MEDS ORDERED: Butorphanol Tartrate 1 MG/ML VIAL SLOW IVP PRN (22:34)
[2019-07-04] MEDS ORDERED: Sodium Chloride 0.9% 100 ML ONE (22:40)
[2019-07-04] MEDS ORDERED: Penicillin G Potassium 5 MILL.UNITS VIAL ONE (22:40)
[2019-07-04] MEDS ORDERED: Penicillin G Potassium 5 MILL.UNITS in Sodium Chloride 0.9% 100 ML IVPB SCH (22:45)
[2019-07-04] MEDS: Lactated Ringer's 1,000 ML IV SCH (23:00)
[2019-07-04 23:21] LABS: Hemoglobin 11.9 g/dL (12.0-16.0); Mean Corpuscular HGB CONC 34.4 g/dL (32.0-36.0); Mean Corpuscular Hemoglobin 30.7 pg (27.0-31.0); Mean Corpuscular Volume 89.4 fL (78.0-98.0); Mean Platelet Volume 8.3 fL (7.4-10.4); Platelet Count 191 thou/uL (130-400); RBC Distribution Width 14.4 % (11.5-14.5); Red Blood Cell (RBC) Count 3.89 mill/uL (4.20-5.40); White Blood Cell (WBC) Count 9.2 thou/uL (4.8-10.8)
[2019-07-04 23:56] LABS: HBSAg Index 0.16 S/CO (0-0.99); Hep B Surf Ag Non-Reactive S/CO (NonReactive); Syphilis Antibody Nonreactive (Nonreactive); Syphilis Antibody Index 0.03 S/CO (<1.00 Non-Reactive)
[2019-07-05] MEDS: Butorphanol Tartrate 1 MG/ML VIAL SLOW IVP SCH ×8 (00:07→17:42)
[2019-07-05] MEDS: Calcium Carbonate 500 MG ChewTAB PO PRN ×2 (03:05→06:18)
[2019-07-05] MEDS: Penicillin G 2.5 MILL.units 2.5 MILL.UNITS in Premix Bag 1 BAG IVPB SCH ×3 (03:06→11:20)
--- NOTE | 2019-07-05 07:04 | PDOC.BPN ---
- Brief Progress Note AROM 0700 clear fluid. Cont plan of care. Cervical check /-
[2019-07-05] MEDS ORDERED: NS w/ Oxytocin 10 units 500 ML ONE (08:03)
[2019-07-05] MEDS ORDERED: MORPHINE 5 MG/10 ML PF VIAL ONE (12:32)
[2019-07-05] MEDS ORDERED: PHENYLEPHRINE-NS 100 MCG/ML 10 ML SYRINGE ONE ×3 (12:33→13:42)
[2019-07-05] MEDS ORDERED: Ondansetron PF 4 MG/2 ML Vial ONE (12:33)
[2019-07-05] MEDS ORDERED: Oxytocin 10 UNITS/ML VIAL ONE (12:33)
[2019-07-05] MEDS ORDERED: CEFAZOLIN 2 GM in Premix Bag 1 BAG IVPB SCH (12:45)
[2019-07-05] MEDS ORDERED: Bicitra 30 ML UDCUP PO SCH (12:45)
[2019-07-05] MEDS ORDERED: Azithromycin 500 MG in Sodium Chloride 0.9% 250 ML 250 ML IVPB SCH (12:45)
[2019-07-05] MEDS ORDERED: L&D-Morphine 4 MG/ML VIAL SLOW IVP PRN (13:01)
[2019-07-05] MEDS ORDERED: Promethazine HCl 25 MG/ML VIAL IM PRN (13:01)
[2019-07-05] MEDS ORDERED: diphenhydrAMINE 50 MG/ML VIAL IVP PRN (13:01)
[2019-07-05] MEDS ORDERED: Ondansetron HCl/PF 4 MG/2 ML Vial IVP PRN (13:01)
[2019-07-05] MEDS ORDERED: diphenhydrAMINE 50 MG/ML VIAL IM PRN (13:01)
[2019-07-05] MEDS ORDERED: diphenhydrAMINE 25 MG CAP PO PRN (13:01)
[2019-07-05] MEDS ORDERED: fentaNYL Citrate/PF 2,000 MCG in Sodium Chloride 0.9% 60 ML IV PRN (13:01)
[2019-07-05] MEDS ORDERED: Zolpidem Tartrate 5 MG TAB PO PRN ×2 (13:01→14:04)
[2019-07-05] MEDS ORDERED: HYDROmorphone 2 MG/ML VIAL SLOW IVP PRN (13:01)
[2019-07-05] MEDS ORDERED: Ondansetron PF 4 MG/2 ML Vial IVP PRN ×2 (13:01→14:04)
[2019-07-05] MEDS ORDERED: Meperidine HCl/PF 25 MG/ML VIAL SLOW IVP PRN (13:01)
[2019-07-05] MEDS ORDERED: Naloxone HCl 0.4 mg/ml Vial IV PRN (13:01)
[2019-07-05] MEDS ORDERED: Ketorolac Tromethamine 30 MG/ML VIAL IVP SCH (13:15)
[2019-07-05] MEDS ORDERED: Communication Order-Pharmacy FS SCH (13:15)
[2019-07-05 13:18] LABS: Actual Bicarbonate (HCO3a) 27.1 mEq/L (22-28); Base Excess (BEa) -1.8 mEq/L (-2.0 to +3.0)
[2019-07-05 13:20] LABS: Actual Bicarbonate (HCO3v) 28 mEq/L (22-28); Base Excess 0.4 mEq/L (-2.0 to +3.0); pH (Cord, venous) 7.31 (7.32-7.43)
[2019-07-05] MEDS ORDERED: Meperidine HCl/PF 25 MG/ML VIAL IM PRN (14:04)
[2019-07-05] MEDS ORDERED: Adacel (T-DAP) 0.5 ML SYRINGE IM ONE (14:04)
[2019-07-05] MEDS ORDERED: HYDROcodone/Acetaminophen 5/325 mg Tablet PO PRN ×2 (14:04)
[2019-07-05] MEDS ORDERED: Misoprostol 200 MCG TAB PR PRN (14:04)
[2019-07-05] MEDS ORDERED: hydrALAZINE 20 MG/ML VIAL SLOW IVP PRN (14:04)
[2019-07-05] MEDS ORDERED: Lanolin Ointment 7 GM TUBE TOP PRN (14:04)
[2019-07-05] MEDS ORDERED: Bisacodyl 10 MG SUPP PR PRN (14:04)
[2019-07-05] MEDS ORDERED: NS / Oxytocin 40 units/1000ml 1,000 ML IV SCH (14:15)
[2019-07-05] MEDS ORDERED: Meperidine HCl/PF 25 MG/ML VIAL ONE (15:39)
[2019-07-05] MEDS: Ferrous Sulfate 325 MG TAB PO SCH (18:45)
[2019-07-05] MEDS: Ibuprofen 800 MG TAB PO SCH (21:33)
[2019-07-05] MEDS: Docusate Calcium (SURFAK) 240 MG CAP PO SCH (21:33)
[2019-07-06] MEDS: Lactated Ringer's 1,000 ML IV SCH (00:10)
[2019-07-06 05:55] LABS: Hemoglobin 12.1 g/dL (12.0-16.0); Mean Corpuscular HGB CONC 34.5 g/dL (32.0-36.0); Mean Corpuscular Hemoglobin 30.9 pg (27.0-31.0); Mean Corpuscular Volume 89.6 fL (78.0-98.0); Mean Platelet Volume 8.1 fL (7.4-10.4); Platelet Count 167 thou/uL (130-400); RBC Distribution Width 14.2 % (11.5-14.5); Red Blood Cell (RBC) Count 3.93 mill/uL (4.20-5.40); White Blood Cell (WBC) Count 10.2 thou/uL (4.8-10.8)
[2019-07-06] MEDS: Ibuprofen 800 MG TAB PO SCH ×3 (06:03→21:44)
[2019-07-06] MEDS: Prenatal Vitamin 1 TAB PO SCH (09:21)
[2019-07-06] MEDS: Docusate Calcium (SURFAK) 240 MG CAP PO SCH ×2 (09:21→21:44)
[2019-07-06] MEDS: Ferrous Sulfate 325 MG TAB PO SCH ×2 (09:22→19:08)
--- NOTE | 2019-07-06 11:07 | OP ---
DATE OF PROCEDURE: 07/05/2019 PREOPERATIVE DIAGNOSES: 1. Term intrauterine at 38 and 2/7th weeks. 2. Breech presentation. POSTOPERATIVE DIAGNOSES: 1. Term intrauterine at 38 and 2/7th weeks. 2. Breech presentation. PROCEDURE PERFORMED: Primary low transverse section. ANESTHESIA: Spinal catheterization. FINDINGS: 1. Patient presenting in early labor with cervical change noted ( ). 2. Breech presentation with back down transverse lie. 3. Viable male infant, 7 pounds 4 ounces, Apgars 5 and 9. 4. Normal uterus, tubes, and ovaries. COMPLICATIONS: None. SPECIMENS REMOVED: 1. Cord blood. 2. Cord gases. BLOOD LOSS: Approximately 800 mL (QBL 725 mL). HISTORY AND INDICATIONS: Ms. Sherri Rahman is a pleasant 33-year-old white female, 7, para 4-1-1-4, who is cared for by Dr. Savage Tucker at [facility]. On the evening of 07/04/2019, Sherri apparently called Dr. Tucker and reported that she was having irregular contractions. She had a history of rapid labor and was known to be GBS positive. Dr. Tucker instructed the patient to present to [facility] Labor and Delivery for evaluation and monitoring. On the night of 07/04/2019, the patient was admitted to Labor and Delivery after cervical change was noted by both the attending nurse and resident physician, Dr. Faria. At checkout on the morning of 07/05/2019, the patient had been examined and was noted to be approximately 6 cm, 50% effaced, and still presentation. The patient labored and denied epidural for anesthesia. Later that morning, I checked Ms. Rahman and she was noted to be 4-5 cm dilated, 50% effaced, and the presenting vertex was not palpable. I could feel the sacrum and immediately ordered an ultrasound, and the patient was confirmed to be breech presentation in a back down semi-transverse lie. The patient was notified of the findings and counseled extensively. Decision was made to proceed with emergent primary low-transverse section secondary to breech presentation, ruptured membranes, and active labor. The patient and her family were counseled at length and questions were answered. Surgical disclosures were signed and placed in the chart. DESCRIPTION OF PROCEDURE: After consent and counseling, Ms. Rahman was taken to the operating room and adequate level of anesthesia was obtained via spinal catheterization. The patient was prepped and draped in a usual sterile fashion for abdominal surgery. A Bean was placed in the bladder which was noted to be draining clear urine. A team time-out was performed per protocol. Attention was then turned to performing the primary low-transverse section. A Pfannenstiel incision was made and carried sharply to the fascia which was also sharply incised. The midline was identified and the rectus muscles were retracted laterally. The abdominal peritoneal cavity was entered with usual safeguard carried out. A retractor was placed and a bladder flap was created on the poorly developed lower uterine segment. A low transverse incision was made and brisk bleeding was noted. Amniotomy was performed and a very small amount of clear amniotic fluid was visualized. As outlined above, the infant was noted to be breech presentation in a semi back down transverse lie. Once the incision was made, the baby's right arm presented through the incision. The arm was flexed and returned into the amniotic sac. Internal version was performed and the breech was carefully advanced into the low-transverse incision. The baby was delivered in footling breech presentation after a T-incision was made on the lower uterine segment. The feet were carefully advanced to the incision and the shoulders and after coming head were delivered in an atraumatic fashion using the Alexis maneuver. The cord was doubly clamped and cut. The infant was handed to the neonatology team in attendance for the delivery. The infant was a viable male weighing 7 pounds 4 ounces with Apgars of 5, 9, and 10 obtained at 1, 5, and 10 minutes respectively. Cord blood gases were obtained. The placenta was manually removed from the uterus. The uterus was exteriorized and good tone was noted. Initially, the T of the low-transverse incision was closed with layer closure including #1 chromic and #1 Vicryl suture. The low-transverse incision was then closed with a running locking ligature of #1 chromic. Good hemostasis was noted. Multiple [id number] ligatures of 0 Vicryl suture were placed to add strength and hemostasis to both low-transverse incision and the T in the lower uterine segment. Good closure and integrity were noted. The vesicouterine peritoneum was reapproximated to the lower segment with a running ligature of 2-0 Monocryl. The uterus was carefully inspected and noted to be normal. Uterus, fallopian tubes, and ovaries were all normal, and no pathology was identified. The posterior cul-de-sac gutters were cleared of clot and fluid. The uterus was carefully returned to the abdomen and good hemostasis was once again noted. Lap, sponge, and needle counts were correct. The peritoneum was then closed with a running ligature of 2-0 Vicryl suture. The rectus muscles were reapproximated in the midline with interrupted ligatures of 2-0 Vicryl and #1 chromic sutures. The fascia was then closed with 2 ligatures of 0 Vicryl suture which were tied in the midline. Good fascial integrity was appreciated. The incision was irrigated with copious amount of warm normal saline. The subcutaneous tissue was closed with interrupted ligatures of 2-0 plain. The skin was closed with a subcuticular stitch of 4-0 Monocryl and then dressed with Dermabond. A pressure dressing and ice packs were subsequently placed. Lap, sponge, and needle counts were correct x3. Estimated blood loss during the surgical procedure was approximately 800 mL (QBL equals 725 mL). The patient was then taken to recovery room in good condition. The baby was taken to the nursery and subsequently returned to the mother for [id number]-ddtt contact and . Immediately following surgery, the patient and family were made aware of the surgical procedure and operative findings. We discussed the findings of compound presentation and the indications for . The patient and her family were appreciative of the care rendered here at [facility] this morning. Job ID: [id number]
[2019-07-06] MEDS: HYDROcodone/Acetaminophen 5/325 mg Tablet PO PRN ×3 (12:59→21:44)
[2019-07-06] MEDS: Simethicone Chewable 80 MG TAB PO PRN ×3 (13:01→21:44)
[2019-07-07] MEDS: HYDROcodone/Acetaminophen 5/325 mg Tablet PO PRN ×2 (04:08→11:38)
[2019-07-07] MEDS: Ibuprofen 800 MG TAB PO SCH ×2 (06:16→14:08)
[2019-07-07] MEDS: Penicillin G 2.5 MILL.units 2.5 MILL.UNITS in Premix Bag 1 BAG IVPB SCH (07:36)
[2019-07-07] MEDS: Lactated Ringer's 1,000 ML IV SCH (07:36)
[2019-07-07 08:30] VITALS: BP 104/55; TEMP 98.6
[2019-07-07] MEDS: Ferrous Sulfate 325 MG TAB PO SCH ×2 (08:43→11:36)
[2019-07-07] MEDS: Docusate Calcium (SURFAK) 240 MG CAP PO SCH (09:00)
[2019-07-07] MEDS: Prenatal Vitamin 1 TAB PO SCH (09:00)
== END 2019-07-07 15:58 | disposition home or self-care (01) | DRG 788 ==
LOC: L&D/OP 18:07 → L&D 07-05 07:25 → 3SE 07-05 16:36
PROVIDERS: ADMIT Obstetrics & Gynecology; ATTEND Obstetrics & Gynecology
PROC: 10D00Z1 Extraction of Products of Conception, Low, Open Approach (ICD-10-PCS; principal; 2019-07-05)
DX: O99.824 Streptococcus B carrier state complicating childbirth (principal); Z3A.38 38 weeks gestation of pregnancy; Z37.0 Single live birth; O32.1XX0 Maternal care for breech presentation, not applicable or unspecified
CPT/HCPCS: 36415; 51702; 82805; 85027; 86780; 86850; 86870; 86900; 86901; 86922; 87340; 99285; J0456; J0595; J0690; J2175; J2274; J2405; J2540; J2590; J3010; J3490; J7050